=== PATIENT | female | born 1975 | race Caucasian/White ===

== ENCOUNTER 2024-01-26 19:00 | Emergency (ER) | payer OTHER, SELFPAY ==
[2024-01-26 19:10] VITALS: BP 154/83; PULSE 69; RESP 20; TEMP 36.7; O2SAT 99
--- NOTE | 2024-01-26 19:22 | ED.FEMALEGU ---
HPI - Female Genitourinary General Chief complaint: Urogenital-Female Stated complaint: Urinary Problems Time Seen by Provider: 01/26/24 19:17 Source: patient and RN notes reviewed Mode of arrival: ambulatory Limitations: no limitations History of Present Illness HPI Narrative: Patient presents today complaining of frequency, urgency, suprapubic pain, malodorous urine since yesterday. She has been taking azo for her symptoms, but not getting much relief. Last dose was approximately 6 hours prior to arrival. Related Data Home Medications Medication Instructions Recorded Confirmed bupropion HCl 150 mg 24 hr tablet, 150 mg PO DAILY 01/26/24 01/26/24 extended release citalopram 20 mg tablet 20 mg PO DAILY 01/26/24 01/26/24 drospirenone 3 mg-ethinyl 1 tablet PO DAILY 01/26/24 01/26/24 estradiol 0.02 mg tablet (Vestura (28)) Allergies Allergy/AdvReac Type Severity Reaction Status Date / Time No Known Allergies Allergy Verified 01/26/24 19:02 Review of Systems Review of Systems: CONSTITUTIONAL: Denies body aches, fever, chills, or sweats. EYES: Denies visual changes, redness, or discharge. ENT: Denies rhinorrhea, congestion, sore throat, or otalgia. CARDIOVASCULAR: Denies chest pain, palpitations, or edema. RESPIRATORY: Denies cough or dyspnea. GASTROINTESTINAL: Denies abdominal pain, nausea, vomiting, or diarrhea. GENITOURINARY: + frequency, urgency, suprapubic pain, malodorous urine SKIN: Denies rash, itching, or wounds. MUSCULOSKELETAL: Denies back pain, joint pain, or myalgia. NEUROLOGIC: Denies headache, numbness, tingling, or weakness. PSYCH: Denies depression or anxiety. PMFSH Comments At time of signature, I have reviewed and agree with nursing past medical, surgical, social and family history unless otherwise noted. Please see nursing chart for further information. There is no relevant family history pertinent to the presenting complaint Exam Narrative: GENERAL: Well-appearing, well-nourished, and in no acute distress. HEAD: Normocephalic, atraumatic. EYES: EOMI. No redness or drainage. Conjunctivae normal. ENT: Mucous membranes pink and moist. NECK: Normal AROM. CHEST: No respiratory distress. Clear to auscultation. HEART: Regular rate and rhythm. No murmur appreciated. Normal peripheral pulses. ABDOMEN: Soft, , nondistended, normal active bowel sounds.+ mild suprapubic pain.-CVAT EXTREMITIES: Normal range of motion. No edema. SKIN: Warm, dry, no rash. Capillary refill normal. Normal skin turgor. NEURO: No focal deficits. Alert and oriented x3. Gait steady. PSYCH: Normal affect. No signs of depression or anxiety. Course Course Level of Care: Express Care Visit Vital Signs Vital signs: Vital Signs Temperature 98.1 F 01/26/24 19:10 Pulse Rate 69 01/26/24 19:10 Respiratory Rate 20 01/26/24 19:10 Blood Pressure 154/83 H 01/26/24 19:10 Pulse Oximetry 99 01/26/24 19:10 Oxygen Delivery Room Air 01/26/24 19:10 Temperature 98.1 F 01/26/24 19:10 Pulse Rate 69 01/26/24 19:10 Respiratory Rate 20 01/26/24 19:10 Blood Pressure 154/83 H 01/26/24 19:10 Pulse Oximetry 99 01/26/24 19:10 Oxygen Delivery Room Air 01/26/24 19:10 Reviewed MDM - Female Genitourinary MDM Narrative Medical decision making narrative: Urinalysis is inconclusive due to azo used. Urine culture pending. Will treat patient based on her history. Anticipatory guidance given. Differential Diagnosis Differential diagnosis: Likely urinary tract infection, vaginitis and cystitis Lab Data Attestation: I reviewed the patient's lab results. Labs: Urine Glucose Trace Reference Range: Negative Urine Bilirubin 1+ Reference Range: Negative Urine Ketone 1+ Reference R
== END 2024-01-26 19:28 | disposition home or self-care (01) ==
PROVIDERS: Emergency Provider Nurse Practitioner; PCP Registered Nurse
DX: N39.0 Urinary tract infection, site not specified (principal); B96.20 Unspecified Escherichia coli [E. coli] as the cause of diseases classified elsewhere; F41.9 Anxiety disorder, unspecified; Z86.16 Personal history of COVID-19
CPT/HCPCS: 81003; 87077; 87086; 87088; 87186; 99203; G0463